=== PATIENT | male | born 1995 | race Caucasian/White ===

== ENCOUNTER 2020-12-19 23:07 | Emergency (ER) | payer OTHER ==
[~2020-12-19] VITALS: Ht 188 cm; Wt 88.6 kg
[2020-12-20] MEDS ORDERED: KETOROLAC10 MG PO (01:17)
[2020-12-20] MEDS ORDERED: CEPHALEXIN500 M1 PO (01:17)
[2020-12-20 01:35] VITALS: BP 144/79
== END 2020-12-20 01:36 | disposition home or self-care (01) ==
LOC: ED 23:07
DX: S06.0X0A Concussion without loss of consciousness, initial encounter (principal); S01.511A Laceration without foreign body of lip, initial encounter; Y04.8XXA Assault by other bodily force, initial encounter
CPT/HCPCS: J1885